=== PATIENT | female | born 1975 | race African-American/Black ===

== ENCOUNTER → 2016-10-28 | Outpatient (CLI) | payer BC ==
[2015-11-18 04:00] VITALS: BP 180/84
--- NOTE | 2016-10-28 10:13 | KCIC ---
PROCEDURE Left breast sonogram. HISTORY 40-year-old female presents for six-month followup evaluation of a left axillary tail lymph node demonstrated on a sonogram and mammogram dated 05/06/2016. TECHNIQUE Sonographic imaging of the left axillary tail and left axilla was performed. COMPARISON 05/06/2016 FINDINGS There is a prominent lymph node within the 2 o'clock position of the left breast 7 cm from the nipple measuring 1.5 cm in maximum dimension. This is increased compared to a prior maximum measurement of 7 mm. This maintains a fatty hilum. However, the lymph node cortex is thickened. There are additional lymph nodes with fatty betariz within the left axilla. IMPRESSION 1. 1.5 cm lymph node with thickened cortex within the 2 o'clock position of the left breast 7 cm from the nipple, increased in size compared to the prior study. Given the presence of a fatty hilum, this may be a benign reactive lymph node. However, given the interval change and thickened cortex, sonographic guided biopsy is recommended for definitive diagnosis. 2. BI-RADS Category 4: Suspicious finding. Sonographic biopsy is recommended. These findings are recommendations were discussed with the patient and this information will be communicated to the referring physician office. Electronically signed by: Shae Rainey (Oct 28, 2016 10:11:10)
== END | disposition home or self-care (01) ==
LOC: KCIC US 08:07
DX: R92.8 Other abnormal and inconclusive findings on diagnostic imaging of breast (principal)
CPT/HCPCS: 76641

== ENCOUNTER 2016-11-11 10:26 | Emergency (ER) | payer BC ==
[~2016-11-11] VITALS: Ht 160 cm; Wt 79.4 kg
--- NOTE | 2016-11-11 12:50 | PHYS DOC ---
Past Medical History Past Medical History: Hypertension Past Surgical History: , Tubal ligation Alcohol Use: Occasionally Drug Use: None Adult General Chief Complaint Chief Complaint: HYPERTENSION HPI HPI Patient is a 40 year old female who presents with hypertension. Patient was to have a mammogram today, however was sent to the ED after blood pressure was found to be elevated. Patient takes amlodipine and HCTZ for her blood pressure, however she says she hasn't taken these meds for weeks and she had run out. She does have a refill already obtained at home, but does not take the meds this morning as she was unsure if she should before the mammogram. She denies any complaints at this time and says she is feeling well. She specifically denies dizziness, chest discomfort, shortness of breath. Review of Systems Review of Systems Constitutional: Denies fever or chills Eyes: Denies change in visual acuity or eye pain HENT: Denies nasal congestion or sore throat Respiratory: Denies cough or shortness of breath Cardiovascular: Denies chest pain GI: Denies abdominal pain, nausea, vomiting, bloody stools or diarrhea : Denies dysuria or hematuria Musculoskeletal: Denies back pain or joint pain Integument: Denies rash or skin lesions Neurologic: Denies headache, focal weakness or sensory changes Current Medications Current Medications Current Medications Medications (Trade) Dose Ordered Sig/Sergio Start Time Stop Time Status Last Admin Dose Admin Amlodipine Besylate (Norvasc) 5 mg 1X ONCE 11/11/16 13:00 11/11/16 13:01 DC 11/11/16 13:00 5 MG Hydrochlorothiazide (Hydrodiuril) 25 mg 1X ONCE 11/11/16 13:00 11/11/16 13:01 DC 11/11/16 14:06 25 MG Allergies Allergies Allergies Coded Allergies Type Severity Reaction Last Updated Verified No Known Drug Allergies 11/17/15 No Physical Exam Physical Exam Constitutional: Well developed, well nourished, no acute distress, non-toxic appearance HENT: Normocephalic, atraumatic, bilateral external ears normal Eyes: EOMI, conjunctiva normal, no discharge Neck: Normal range of motion, no stridor Cardiovascular: Heart rate normal, regular rhythm, no murmur Lungs & Thorax: Bilateral breath sounds clear to auscultation Abdomen: Bowel sounds normal, soft, non-distended, no TTP Skin: Warm, dry, no erythema, no rash Extremities: No obvious deformity, no edema Neurologic: Alert and oriented X 3, no gross deficits noted Psychologic: Affect normal, judgement normal, mood normal Current Patient Data Vital Signs Vital Signs Date Time Temp Pulse Resp B/P Pulse Ox O2 Delivery O2 Flow Rate FiO2 11/11/16 13:52 87 18 237/122 99 Room Air 11/11/16 11:15 98.4 98.4 EKG EKG [] Radiology/Procedures Radiology/Procedures [] Course & Med Decision Making Course & Med Decision Making Pertinent Labs and Imaging studies reviewed. (See chart for details) Patient is 40-year-old female who presents with elevated blood pressure. She is asymptomatic. No concerning findings on physical exam. Obvious cause for hypertension and she has not taken her blood pressure meds for the past week. Will give dose of home meds, and as she is feeling well and would like to go home will discharge her at this time. Given instructions for follow-up with PCP and strict return precautions. Dragon Disclaimer Dragon Disclaimer This electronic medical record was generated, in whole or in part, using a voice recognition dictation system. Departure Departure Impression: Primary Impression: Elevated blood pressure reading Disposition: HOME, SELF-CARE Condition: STABLE Referrals: NO PCP (PCP) Patient Instructions: Hypertension Additional Instructions: Thank you for allowing us to provide care today in the Emergency Department. Continue to take your blood pressure medication as prescribed. Schedule a follow up appointment with your primary care doctor. Return promptly to the Emergency Department if you develop any new or concerning symptoms. ANA MEYERS MD Nov 11, 2016 12:50
[2016-11-11] MEDS ORDERED: HYDROCHLOROTHIAZIDE 25 MG TABLET PO ONE (13:00)
[2016-11-11] MEDS ORDERED: AMLODIPINE BESYLATE 5 MG TABLET PO ONE (13:00)
[2016-11-11 13:52] VITALS: BP 237/122
== END 2016-11-11 14:16 | disposition home or self-care (01) ==
LOC: ER 10:26
DX: I10 Essential (primary) hypertension (principal); Z79.899 Other long term (current) drug therapy
CPT/HCPCS: 99284

== ENCOUNTER → 2016-11-11 | Outpatient (CLI) | payer BC ==
[~2016-11-11] VITALS: Ht 160 cm; Wt 77.1 kg
[2016-11-11 09:25] VITALS: BP 206/112
--- NOTE | 2016-11-11 12:48 | RAD ---
LEFT BREAST SONOGRAM Clinical indications: The patient scheduled for a biopsy of the intramammary lymph node of the upper-outer quadrant of left breast at the 2:00 position. However, the patient's blood pressure on arrival was 206/112. Therefore, the biopsy was canceled and the patient was sent to the emergency room. However prior to being sent to the ER, sonography of the upper outer quadrant of the left breast was performed which demonstrates a 10 mm lymph node at the 1:00 position approximately 9 cm from the nipple. This demonstrates normal lymph node sonographic architecture without abnormal cortical thickening. This corresponds to the sonogram finding dated October 28, 2016. There is another lymph node at the 2:00 position which corresponds to the 2:00 lymph node seen on May 06, 2016 and has not changed significantly in size. 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 Therefore, I would recommend a follow-up left-sided mammogram to ensure the nodule within the upper-outer quadrant of the left breast is stable mammographically. If stable mammographically, the finding is most consistent with a benign intramammary lymph node and continued follow-up in 6 months could be performed rather than biopsy. IMPRESSION: probable benign intramammary lymph nodes of the left breast. Recommend diagnostic left-sided mammogram for further evaluation. This can be performed today if the patient is released from the emergency room after treatment of the high blood pressure. Otherwise it can be rescheduled at a later time. BI-RADS category 0A, incomplete study. Additional imaging is needed. The patient information was entered into the data reminder system with a target due date for the next mammogram of now.
--- NOTE | 2016-11-11 15:44 | RAD ---
DATE: November 11, 2016 EXAM: DIGITAL DIAGNOSTIC LT HISTORY: Nodule of the upper-outer quadrant of the left breast. Intramammary lymph node. COMPARISON: May 06, 2016 [facility] This study was interpreted with the benefit of Computerized Aided Detection (CAD). FINDINGS: The breast parenchyma is heterogeneously dense. Again seen is the nodule within the upper-outer quadrant of the left breast consistent with an intramammary lymph node and this is stable. No new finding is evident. IMPRESSION: Stable intramammary lymph node of the upper outer quadrant of the left breast. Recommend bilateral mammography in 6 months and left breast sonogram in 6 months to ensure stability of these intramammary lymph nodes. The patient stated she has no new palpable finding. BI-RADS CATEGORY: 3 PROBABLE BENIGN-SHORT TERM F/U RECOMMENDED FOLLOW-UP: 6M 6 MONTH FOLLOW-UP PQRS compliance statement: Patient information was entered into a reminder system with a target due date May 11, 2017 for the next mammogram. Mammography is a sensitive method for finding small breast cancers, but it does not detect them all and is not a substitute for careful clinical examination. A negative mammogram does not negate a clinically suspicious finding and should not result in delay in biopsying a clinically suspicious abnormality. "Our facility is accredited by the [employer] Mammography [employer]."
== END | disposition home or self-care (01) ==
LOC: US 07:50
PROVIDERS: ATTEND Internal Medicine
DX: N63 Unspecified lump in breast (principal)
CPT/HCPCS: 76641; G0206; 77065

== ENCOUNTER → 2017-05-05 | Outpatient (CLI) | payer BC ==
--- NOTE | 2017-05-05 09:54 | RAD ---
DATE: 05/05/2017 EXAM: MAMMO DEANNA GARTH PALACIO HISTORY: Follow-up nodule COMPARISON: 11/11/2016, 05/06/2016 This study was interpreted with the benefit of Computerized Aided Detection (CAD). The breast parenchyma is heterogeneously dense, which could reduce sensitivity of mammography. Breast parenchyma level C. FINDINGS: 2-D and 3-D tomosynthesis imaging was performed in CC and MLO projections. There is persistent smooth, lobulated opacity in the lateral aspect of the left breast as seen on CC tomogram image #34. This density measures approximately 12 mm in greatest dimension and is unchanged. The findings are compatible with a lymph node or lymph node cluster. The previous ultrasound also suggested a benign etiology. There is an additional cluster of tiny smooth nodules in the lateral aspect of the left breast as seen on CT tomogram #14. It is also unchanged and is probably a lymph node cluster. There is a small smooth lobulated nodule in the lateral aspect of the right breast as seen on CC tomogram #39 and oblique tomogram #22. It has a benign appearance similar to the above described opacities. It was less clearly seen on the outside tomograms from 05/06/2016 due to technical factors, but has shown no definite change. No new or enlarging breast densities are seen. No suspicious microcalcifications are evident. IMPRESSION: Small benign-appearing lymph node type densities in both breasts as described above. Follow-up 3-D mammography in 6 months and then at yearly intervals is suggested to confirm stability. BI-RADS CATEGORY: 3 PROBABLY BENIGN FINDING(S)-SHORT INTERVAL FOLLOW-UP SUGGESTED RECOMMENDED FOLLOW-UP: 6M 6 MONTH FOLLOW-UP PQRS compliance statement: Patient information was entered into a reminder system with a target due date for the next mammogram. Mammography is a sensitive method for finding small breast cancers, but it does not detect them all and is not a substitute for careful clinical examination. A negative mammogram does not negate a clinically suspicious finding and should not result in delay in biopsying a clinically suspicious abnormality. "Our facility is accredited by the [employer] Mammography Program."
== END | disposition home or self-care (01) ==
LOC: KCIC MAMMO 08:21
PROVIDERS: ATTEND Internal Medicine
DX: N63 Unspecified lump in breast (principal)
CPT/HCPCS: G0204; G0279; 77062; 77066

== ENCOUNTER → 2018-09-07 | Outpatient (CLI) | payer BC ==
--- NOTE | 2018-09-07 10:26 | KCIC ---
DATE: 09/07/2018 EXAM: MAMMO DEANNA DIAG BILAT HISTORY: Follow-up nodules COMPARISON: 05/05/2017 This study was interpreted with the benefit of Computerized Aided Detection (CAD). Breast Density: HETERO The breast parenchyma is heterogenously dense, which could reduce sensitivity of mammography. Breast parenchyma level C. FINDINGS: 2-D and 3-D tomosynthesis imaging was performed in CC and MLO projections. A small lobulated opacity in the lateral aspect of the right breast as best seen on CC tomosynthesis image #39 is unchanged. There are 2 additional small clusters of smooth nodules in the lateral aspect of the left breast, best seen on left CC deanna images #40 and #13. These are also unchanged. The findings suggest small lymph node or cyst clusters. No new or enlarging breast densities are seen. No spiculated mass or architectural distortion is evident. No suspicious microcalcifications are seen. IMPRESSION: Stable benign-appearing bilateral breast nodules. Follow-up bilateral mammography in one year is suggested. BI-RADS 3-probably benign findings RECOMMENDED FOLLOW-UP: 12M 12 MONTH FOLLOW-UP PQRS compliance statement: Patient information was entered into a reminder system with a target due date for the next mammogram. Mammography is a sensitive method for finding small breast cancers, but it does not detect them all and is not a substitute for careful clinical examination. A negative mammogram does not negate a clinically suspicious finding and should not result in delay in biopsying a clinically suspicious abnormality. "Our facility is accredited by the [employer] Mammography Program."
== END | disposition home or self-care (01) ==
LOC: KCIC MAMMO 08:46
DX: R92.8 Other abnormal and inconclusive findings on diagnostic imaging of breast (principal)
CPT/HCPCS: 77066; G0279; 77062

== ENCOUNTER → 2019-10-09 | Outpatient (CLI) | payer BC ==
--- NOTE | 2019-10-09 09:18 | KCIC ---
Bilateral diagnostic digital mammograms with 3-D tomosynthesis: Reason for examination: Follow-up nodules. Comparison is made to previous studies dated back to 05/06/2016. Bilateral mammograms in CC and oblique projections were obtained with 2-D imaging and 3-D tomosynthesis imaging on a Siemens Inspiration unit and reviewed on the workstation. Interpretation was made with the benefit of CAD. The skin and nipples show no abnormalities. No abnormal axillary lymph nodes are seen. The breast parenchyma is heterogeneously dense. (Breast density: Category C.) There continues to be nodules bilaterally consistent with intramammary lymph nodes which are stable. There are no new dominant masses, suspicious calcifications or architectural distortion. Impression: No evidence of malignancy. Recommend routine screening. Your patient's mammogram demonstrates that she has dense breast tissue (breast density category C or D), which could hide abnormalities, and if she has other risk factors for breast cancer that have been identified, she might benefit from supplemental screening tests that may be suggested by you as her ordering physician. Dense breast tissue, in and of itself, is a relatively common condition. Therefore, this information is not provided to cause undue concern, but rather to raise your awareness and to promote discussion with your patient regarding the presence of other risk factors, in addition to dense breast tissue. Your patient's mammography results will be sent to her. BI-RAD Category 2: Benign. "Our facility is accredited by the [employer] Mammography [employer]." This patient's information has been entered into a reminder system for the patient to be notified with the results of her examination and a target date for the next mammogram. Electronically signed by: Monalisa Mckeon MD (10/09/2019 9:15 AM) [id number]
== END | disposition home or self-care (01) ==
LOC: KCIC MAMMO 08:01
PROVIDERS: ATTEND Internal Medicine
DX: R92.8 Other abnormal and inconclusive findings on diagnostic imaging of breast (principal)
CPT/HCPCS: 77066; G0279; 77062

== ENCOUNTER → 2020-10-09 | Outpatient (CLI) | payer BC ==
--- NOTE | 2020-10-09 17:15 | KCIC ---
Bilateral digital screening mammograms and tomosynthesis Reason for examination: Routine screening. Comparison is made to previous study dated October 2019 and prior intramedullary lymph nodes of the u pper outer breast are stable, benign. Routine CC and MLO digital views obtained. Interpretation was made with the benefit of CAD. The skin and nipples show no abnormalities. No abnormal axillary lymph nodes are seen. The breast par enchyma is heterogeneously dense. (Breast density: Category C.) There are no suspicious masses, suspi cious calcifications or architectural distortion. Impression: Negative mammogram. Recommend routine screening. ?Your patient's mammogram demonstrates that she has dense breast tissue (breast density category C or D), which could hide abnormalities, and if she has other risk factors for breast cancer that have be en identified, she might benefit from supplemental screening tests that may be suggested by you as he r ordering physician. Dense breast tissue, in and of itself, is a relatively common condition. Theref ore, this information is not provided to cause undue concern, but rather to raise your awareness and to promote discussion with your patient regarding the presence of other risk factors, in addition to dense breast tissue. Your patient's mammography results will be sent to her. BI-RAD Category 2: Benign. "Our facility is accredited by the [employer] Mammography [employer]." This patient's information has been entered into a reminder system for the patient to be notified wit h the results of her examination and a target date for the next mammogram. Electronically signed by: Jus Chandra MD (10/09/2020 5:08 PM) [id number]
== END ==
LOC: KCIC MAMMO 12:42
PROVIDERS: ATTEND Internal Medicine
DX: Z12.31 Encounter for screening mammogram for malignant neoplasm of breast (principal)
CPT/HCPCS: 77063; 77067